=== PATIENT | female | born 1970 | race Caucasian/White ===

== ENCOUNTER 2021-05-21 09:36 | Outpatient (CLI) | payer BC, SELFPAY ==
--- NOTE | ~2021-05-21 | US_ITS ---
EXAMINATION: US abdomen complete EXAM DATE: 05/21/2021 10:25 INDICATION: Abnormal weight loss, renal cyst. TECHNIQUE: Multiple grayscale and Doppler images of the complete abdomen were obtained (by a technolo gist who performed the scan) and subsequently reviewed. There is no prior study for comparison. FINDINGS: The abdominal aorta is normal in caliber. Visualized portion IVC is patent. The pancreatic head a nd body are normal in appearance. The pancreatic tail is not visualized. The liver has normal echogenicity and contour. There are no focal liver lesions identified. There is no evidence of intrahepatic biliary duct dilation. Portal venous flow was seen in the hepatopedal , normal direction and has normal Doppler waveform. Common bile duct measures 3 mm, which is normal. The gallbladder wall is normal in thickness, with ex pected amount of distention. No sonographic evidence of pericholecystic fluid. There is no cholelit hiases. Technologist performing exam reports patient did not demonstrate sonographic Kahn's sign. Please note that this sign is less reliable in patients who have received pain medication. Right kidney: There is normal contour and echogenicity. It measures 9.2 x 4.7 x 5.2 centimeters. Th ere is a 9 mm cyst. There is no hydronephrosis. Left kidney: There is normal contour and echogenicity. It measures 10.8 x 6.9 x 5.1 centimeters. T here are no focal renal lesions identified. There is no hydronephrosis. The spleen measures 8.5 centimeters and is morphologically normal. IMPRESSION: 1. Unremarkable complete abdominal ultrasound exam. Reviewed, dictated and finalized at location [facility]. [facility]
== END 2021-05-21 09:37 ==
PROVIDERS: PCP Emergency Medicine; Visit Provider Emergency Medicine
DX: R63.4 Abnormal weight loss (principal)
CPT/HCPCS: 76700

== ENCOUNTER 2022-06-10 01:51 | Day surgery (SDC) | payer BC, SELFPAY ==
[2022-05-31 13:53] VITALS: BMI 28.7
--- NOTE | 2022-06-10 09:06 | P.PNAN_ITS ---
Anes - Initial Pre Proc Eval Procedure: Operation Date: 06/10/22 11:00 Proposed Procedures p Screening Colonoscopy - J Luis Clifton MD Date/Time: 06/10/22 09:06 Surgeon: J Luis Clifton MD Pre Op Diagnosis: neoplasm screening Patient Data Age: 52 Gender: F Height: 1.55 m Weight: 69 kg Allergies Allergy/AdvReac Type Severity Reaction Status Date / Time doxycycline Allergy Unknown Rash Verified 06/10/22 10:24 Home Medications Medication Instructions Recorded Confirmed Type alprazolam 0.5 mg tablet 0.5 mg PO DAILY 05/31/22 05/31/22 History duloxetine 60 mg capsule,delayed 60 mg PO DAILY 05/31/22 05/31/22 History release methylphenidate HCl 18 mg 18 mg PO DAILY 05/31/22 05/31/22 History tablet,extended release 24 hr Patient hx anesthesia problems: none Family hx anesthesia problems: none Results Review: All pre-operative results and documents have been reviewed as part of the pre- operative evaluation. [facility] Surgical History Surgical History (Updated 06/10/22 @ 09:06 by Tres Wiseman DO) History of hysterectomy Family History Family History (Updated 07/07/17 @ 11:00 by DOCTOR UNKNOWN) Father Family history of malignant neoplasm of uterus Family history of malignant neoplasm Mother No family history of hypertension Hypertension Other Diabetes mellitus Social History Social History Smoking packs per day: 1 Smoking cigarettes per day: 20.0 Years smoked: 30 Smoking pack-years: 30.00 Smoking status: Current every day smoker Tobacco type: cigarettes Alcohol intake: current Drinks per week: 5 Substance use type: does not use Living arrangements: with family Spiritual care concerns: No Anes - Eval Final PreProcedure Day of Procedure 06/10/22 09:06 Patient weight: overweight Heart: regular rate and rhythm Lungs: clear to auscultation Airway: Mallampati scale class II Neurological: alert and oriented Last oral intake: >/= 8 hours ASA classification: II Emergent: no Anesthetic plan: proceed Anesthesia type and monitoring: general GIVS and standard monitoring Results Review: All pre-operative results and documents have been reviewed as part of the pre- operative evaluation. Informed Consent: The patient's anesthetic plan and its attendant risks and benefits were discussed with the patient/family/POA. Questions were solicited and answers provided to the satisfaction of the patient/family/POA.
[2022-06-10 10:25] VITALS: BP 132/66; PULSE 78; RESP 20; TEMP 36.4; O2SAT 99; BMI 27.6
[2022-06-10] MEDS: LACTATED RINGERS 1,000 ML 150 ML IV CONT (10:30)
--- NOTE | 2022-06-10 10:45 | P.HP_ITS ---
History of Present Illness History of Present Illness Consent: Risks, benefits, and alternatives have been discussed and questions answered. Patient agrees to proceed with procedure. Chief complaint: neoplasm screening Narrative: Olesya Luna is a 52 year old female Presents for screening colonoscopy. Patient's current weight appetite and bowel movements are normal. Patient denies abdominal pain. She has had no bleeding. Family history is noncontribut ory. Review of Systems Review of Systems: Review of systems noncontributory. [facility] Surgical History Surgical History (Updated 06/10/22 @ 09:06 by Tres Wiseman, ) History of hysterectomy Family History Family History (Updated 07/07/17 @ 11:00 by DOCTOR UNKNOWN) Father Family history of malignant neoplasm of uterus Family history of malignant neoplasm Mother No family history of hypertension Hypertension Other Diabetes mellitus Social History Social History Smoking packs per day: 1 Smoking cigarettes per day: 20.0 Years smoked: 30 Smoking pack-years: 30.00 Smoking status: Current every day smoker Tobacco type: cigarettes Alcohol intake: current Drinks per week: 5 Substance use type: does not use Living arrangements: with family Spiritual care concerns: No Meds Home Medications and Allergies Home Medications Medication Instructions Recorded Confirmed Type alprazolam 0.5 mg tablet 0.5 mg PO DAILY 05/31/22 05/31/22 History duloxetine 60 mg capsule,delayed 60 mg PO DAILY 05/31/22 05/31/22 History release methylphenidate HCl 18 mg 18 mg PO DAILY 05/31/22 05/31/22 History tablet,extended release 24 hr Allergies Allergy/AdvReac Type Severity Reaction Status Date / Time doxycycline Allergy Unknown Rash Verified 06/10/22 10:24 Vital Signs Vital Signs - 24 hr 06/10/22 10:25 Temperature 97.5 F L Pulse Rate 78 Respiratory Rate 20 Blood Pressure 132/66 Pulse Oximetry 99 Oxygen Delivery Room Air Exam Narrative: physical exam reveals patient be alert. Vital signs stable. HEENT exam is unremarkable. Patient is anicteric. Lungs are clear to auscultation and percussion. Heart is without murmur or extra sounds. Abdomen bowel sounds present soft nontender with no organomegaly. Digital external rectal exam is normal. Assessment and Plan Assessment and plan (1) Encounter for screening colonoscopy: Code(s): Z12.11 - Encounter for screening for malignant neoplasm of colon Status: Acute Assessment and Plan: Patient presents today for screening colonoscopy. Appears to be at average risk for colon polyps.
[2022-06-10 11:30] VITALS: BP 91/49; PULSE 68; RESP 22; O2SAT 98
[2022-06-10 11:40] VITALS: BP 130/74; PULSE 67; RESP 18; O2SAT 100
[2022-06-10 11:50] VITALS: BP 136/90; PULSE 72; RESP 21; O2SAT 100
== END 2022-06-10 11:54 | disposition home or self-care (01) ==
PROVIDERS: PCP Emergency Medicine; Visit Provider Internal Medicine Gastroenterology
PROC: 0DJD8ZZ Inspection of Lower Intestinal Tract, Via Natural or Artificial Opening Endoscopic (ICD-10-PCS; CPT 45378; principal; 2022-06-10 11:00)
DX: Z12.11 Encounter for screening for malignant neoplasm of colon (principal); K64.8 Other hemorrhoids; F17.210 Nicotine dependence, cigarettes, uncomplicated
CPT/HCPCS: 45378; J2704; J7120

== ENCOUNTER → 2022-06-13 08:47 | Outpatient (CLI) | payer BC, SELFPAY ==
--- NOTE | ~2022-06-13 | CT_ITS ---
CT Scan of the Chest without Contrast: Clinical Indication: Lung cancer screening, personal history of nicotine dependence Technique: Contiguous sections were acquired throughout the chest without intravenous contrast. Dose reduction technique was used on this scan by utilizing automated exposure control and iterative recon struction technique. The dose-length product (DLP) was 70.81 mGy-cm. Findings: There is no evidence of any significant mediastinal, hilar or axillary lymphadenopathy. The mediastin al soft tissues appear normal. There is no evidence of pleural or pericardial effusion. Scattered calcified granulomas are present. No suspicious or noncalcified pulmonary nodule seen. Images through the upper abdomen reveal no abnormalities. Impression: Lung-RADS 2: Benign appearance. [address] advised. Reviewed, dictated and finalized at [facility]. Impression: Lung-RADS 2: Benign appearance. [address] advised.
== END ==
PROVIDERS: PCP Emergency Medicine; Visit Provider Emergency Medicine
DX: Z12.2 Encounter for screening for malignant neoplasm of respiratory organs (principal); F17.210 Nicotine dependence, cigarettes, uncomplicated
CPT/HCPCS: 71271